=== PATIENT | female | born 1945 | race Caucasian/White ===

== ENCOUNTER 2018-12-12 09:52 | Outpatient (REF) | payer OTHER, SELFPAY ==
[2018-12-12 20:36] LABS: Anion Gap 7.9 mmol/L (3-11); BUN 15 mg/dL (7-18); CO2 29.1 mmol/L (21.0-32.0); CREATININE 0.83 mg/dL (0.55-1.02); Calcium 8.8 mg/dL (8.5-10.1); Chloride 104 mmol/L (98-107); Glucose 105 mg/dL (70-100); Sodium 141 mmol/L (136-145); Troponin I < 0.02 ng/mL (0.00-0.06)
== END 2018-12-12 10:12 ==
LOC: NCHCN 09:52
PROVIDERS: PCP Nurse Practitioner Family; Visit Provider Nurse Practitioner Family
DX: R07.89 Other chest pain (principal)
CPT/HCPCS: 80048; 84484

== ENCOUNTER 2019-03-10 10:37 | Outpatient (REF) | payer OTHER, SELFPAY ==
[2019-03-10 20:32] LABS: TSH 2.49 uIU/mL (0.36-3.74)
== END 2019-03-10 10:57 ==
LOC: NCHCN 10:37
PROVIDERS: PCP Nurse Practitioner Family; Visit Provider Nurse Practitioner Family
DX: E03.9 Hypothyroidism, unspecified (principal)
CPT/HCPCS: 84443

== ENCOUNTER 2019-03-28 01:37 | Outpatient (CLI) | payer OTHER, SELFPAY ==
--- NOTE | 2019-03-28 14:13 | DI.DEXA_ITS ---
SYMPTOMS/DIAGNOSIS: OSTEOPOROSIS, M81.0 DEXA SCAN: DEXA scan was performed according to the usual protocol. The findings for left hip scanning are T score -1.9 with left femoral neck T score -2.2. Findings for lumbar spine scanning are T score -.7. The findings for left forearm scanning are T score -3.2. CONCLUSION: Findings consistent with osteoporosis. Please note that the lateral vertebral scanogram shows no evidence of a vertebral compression fracture.
== END 2019-03-28 01:57 ==
PROVIDERS: PCP Nurse Practitioner Family; Visit Provider Nurse Practitioner Family
DX: M81.0 Age-related osteoporosis without current pathological fracture (principal)
CPT/HCPCS: 77080

== ENCOUNTER 2020-06-26 10:53 | Outpatient (REF) | payer OTHER, SELFPAY ==
[2020-06-26 21:09] LABS: Abs Immature Grans 0.01 10^3/uL (0.0-0.06); Absolute Basophil Count 0.09 10^3/uL (0.0-0.2); Absolute Lymphocyte Count 1.97 10^3/uL (1.2-3.4); Absolute Monocyte Count 0.59 10^3/uL (0.1-0.8); Absolute Neutrophil Count 3.26 10^3/uL (1.2-6.7); Basophils % 1.4; Eosinophils % 4.8; HCT 42.6 % (36.0-46.0); HGB 14.1 g/dL (11.2-15.7); Immature Grans % 0.2; Lymphocytes % 31.7; MCH 31.6 pg (27.0-33.0); MCHC 33.1 % (32.0-36.0); MCV 95.5 fL (80-95); MPV 12.9 fL (8.0-11.0); Monocytes % 9.5; Neutrophils % 52.4; Nucleated RBC 0 %; Platelet Count 204 10^3/uL (130-400); RBC 4.46 10^6/uL (3.93-5.22); RDW 14.1 % (11.7-14.6); RDW-SD 49.8 fL; WBC 6.22 10^3/uL (4.4-10.8)
[2020-06-26 23:25] LABS: ALT 23 U/L (14-59); AST 21 U/L (15-37); Albumin 3.8 g/dL (3.4-5.0); Alkaline Phosphatase 78 U/L (46-116); Anion Gap 10.3 mmol/L (3-11); BUN 21 mg/dL (7-18); Bilirubin, Total 0.6 mg/dL (0.2-1.0); CO2 24.7 mmol/L (21.0-32.0); Calcium 8.8 mg/dL (8.5-10.1); Calculated LDL 104 mg/dL (<100); Chloride 104 mmol/L (98-107); Cholesterol 180 mg/dL (<200); Glucose 99 mg/dL (74-106); HDL Cholesterol 50 mg/dL (40-60); Potassium 4.4 mmol/L (3.5-5.1); Sodium 139 mmol/L (136-145); TSH (W/Ref FT4) 1.96 uIU/mL (0.36-3.74); Total Protein 7.3 g/dL (6.4-8.2); Triglyceride 133 mg/dL (<150)
[2020-06-27 04:45] LABS: Vitamin D 25 Total 28.3 ng/ml (30-100)
== END 2020-06-26 11:13 ==
LOC: NCHCN 10:53
PROVIDERS: PCP Nurse Practitioner Family; Visit Provider Physician Assistant
DX: E78.5 Hyperlipidemia, unspecified (principal); E03.9 Hypothyroidism, unspecified; M81.0 Age-related osteoporosis without current pathological fracture
CPT/HCPCS: 80053; 80061; 82306; 84443; 85025

== ENCOUNTER 2021-04-09 01:30 | Outpatient (CLI) | payer OTHER, SELFPAY ==
--- NOTE | 2021-04-09 | DI.RAD_ITS ---
Exam(s) XR LUMBAR SPINE COMPLETE EXAM: XR LUMBAR SPINE COMPLETE CLINICAL HISTORY: HIP JOINT PAIN RT, M25.551, PAIN IN RT LOWER LEG, M79.661. TECHNIQUE: 2D digital imaging was performed. COMPARISON: No exams were available for comparison FINDINGS: No evidence of acute fracture. There is degenerative anterolisthesis of L4 upon L5, approximately 1 cm, this related to degenerative changes in the facet joints. There is also moderate narrowing of th e L4-5 disc space. There is uniform narrowing of the L1-2 disc space. There is narrowing of the rig ht side of the L2-3 disc space, this resulting in element of scoliosis. There is relative preservati on of disc height at L3-4 level. Advanced disc height loss at L5-S1. Mild multilevel degenerative f acet arthropathy. Sacroiliac joints appear unremarkable. IMPRESSION: Multilevel disc disease and degenerative changes. There is approximately 1 centimeter anterior listh esis of L4 upon L5, this related to facet arthropathy at this level. DATA REPOSITORY: RADIATION DOSE DELIVERED:
--- NOTE | 2021-04-09 | DI.RAD_ITS ---
Exam(s) XR HIP RT COMPLETE AP PELVIS EXAM: XR HIP RT COMPLETE AP PELVIS CLINICAL HISTORY: HIP JOINT PAIN, M25.551, PAIN IN RT LOWER LEG, M79.661. TECHNIQUE: 2D digital imaging was performed. COMPARISON: No exams were available for comparison FINDINGS: No evidence of pelvic nor hip fracture. However, there is asymmetric advanced degenerative osteoarth ritis in the right hip with [id number] apposition in the superior aspect of the right hip joint and subarticular cysts on both sides of this joint. There is no similar narrowing seen in the opposite- left hip. No ominous osseous lesions. Bone density is age-appropriate. IMPRESSION: Advanced degenerative changes in the right hip evident. Sign rib DATA REPOSITORY: RADIATION DOSE DELIVERED:
--- NOTE | 2021-04-09 15:19 | DI.MAMMO_ITS ---
Exam(s) MAMMO SCREENING EXAM: MAMMO SCREENING CLINICAL HISTORY: SCREENING, Z12.31 TECHNIQUE: Bilateral full field digital CC and MLO mammographic images were obtained with 3D tomosyn thesis and utilizing computer aided detection (CAD). COMPARISON: Available for comparison. FINDINGS: Masses/Architectural Distortion: None seen. Microcalcifications: No suspicious pleomorphic-type are seen. Skin Thickening/Nipple Retraction: None. IMPRESSION: 1. No significant interval change with no specific features of malignancy noted. 2. Unless there is more urgent need, screening mammography is recommended, as per [employer] [place] [employer] guidelines. BI-RADS Category 1 - Negative Breast Density - Category B - Scattered areas of fibroglandular density Breast density category C or D implies that the patient has dense breast tissue. Dense breast tissue is very common and is not abnormal but dense breast tissue can make it harder to find cancer on a ma mmogram. Also, dense breast tissue may increase their breast cancer risk. This information about the result of the mammogram report was provided to the patient to raise their awareness. Use this report when you speak with the patient about their risks for breast cancer, which includes their family hist ory. At that time, you may recommend for more screening tests (Ultrasound or MRI) as they might be us eful based on their risk. A negative radiographic report should not delay biopsy if a dominant or clinically suspicious mass is present. Up to ten percent of cancers are not identified on mammography. A negative report may reinforce clinical impression. Adenosis and dense breasts may obscure an underlying neoplasm. False positive reports average 6 to 10%. Patient will receive a letter notifying them of these results.
== END 2021-04-09 01:50 ==
PROVIDERS: PCP Nurse Practitioner Family; Visit Provider Nurse Practitioner Family
DX: Z12.31 Encounter for screening mammogram for malignant neoplasm of breast (principal); M25.551 Pain in right hip; M79.661 Pain in right lower leg
CPT/HCPCS: 77063; 77067; 72110; 73502

== ENCOUNTER → 2021-06-12 08:25 | Outpatient (BNVA) | payer MEDICARE, SELFPAY | PROVIDERS: PCP Nurse Practitioner Family; Referring Provider Nurse Practitioner Family; Visit Provider Student in an Organized Health Care Education/Training Program | DX: M16.11 Unilateral primary osteoarthritis, right hip (principal); Z95.4 Presence of other heart-valve replacement | CPT/HCPCS: 99203 ==

== ENCOUNTER 2021-07-30 13:07 | Outpatient (CLI) | payer MEDICARE, SELFPAY ==
--- NOTE | 2021-07-30 13:00 | DI.RAD_ITS ---
Exam(s) XR PELVIS AP EXAM: XR PELVIS AP CLINICAL HISTORY: pre op R ELEON[facility]A. TECHNIQUE: 2D digital imaging was performed. COMPARISON: Prior x-rays 04/09/2021 FINDINGS: No evidence of pelvic nor hip fracture. Again noted is advanced degenerative narrowing of the superior aspect of the right hip joint with bon e-on-bone narrowing again noted and degenerative subarticular cysts on both sides the joint. Similar findings are not seen in the opposite-left hip. Sacroiliac joints appear unremarkable IMPRESSION: Advanced degenerative narrowing of the right hip joint again noted. DATA REPOSITORY: RADIATION DOSE DELIVERED:
== END 2021-07-30 13:08 | disposition home or self-care (01) ==
LOC: DIORS 13:08
PROVIDERS: PCP Nurse Practitioner Family; Referring Provider Nurse Practitioner Family; Visit Provider Physician Assistant
DX: M16.11 Unilateral primary osteoarthritis, right hip (principal); Z01.818 Encounter for other preprocedural examination
CPT/HCPCS: 72170

== ENCOUNTER 2021-08-11 04:15 | Outpatient (CLI) | payer MEDICARE, SELFPAY ==
[2021-08-11 10:11] LABS: HCT 43.4 % (36.0-46.0); HGB 14.4 g/dL (11.2-15.7); MCH 31.7 pg (27.0-33.0); MCHC 33.2 % (32.0-36.0); MCV 95.6 fL (80-95); MPV 10.8 fL (8.0-11.0); Platelet Count 216 10^3/uL (130-400); RBC 4.54 10^6/uL (3.93-5.22); RDW 13.5 % (11.7-14.6); RDW-SD 48.3 fL
[2021-08-11 10:56] LABS: Anion Gap 10.7 mmol/L (3-11); BUN 16 mg/dL (7-18); CO2 26.3 mmol/L (21.0-32.0); CREATININE 0.8 mg/dL (0.55-1.02); Calcium 9.1 mg/dL (8.5-10.1); Chloride 104 mmol/L (98-107); Glucose 113 mg/dL (74-106); Potassium 4.1 mmol/L (3.5-5.1); Sodium 141 mmol/L (136-145)
[2021-08-12 20:56] LABS: COVID-19 RT-PCR UVMMC Result Negative (Negative)
== END 2021-08-11 04:16 | disposition home or self-care (01) ==
LOC: LBO 04:15
PROVIDERS: PCP Nurse Practitioner Family; Visit Provider Student in an Organized Health Care Education/Training Program
DX: M16.11 Unilateral primary osteoarthritis, right hip (principal); Z01.818 Encounter for other preprocedural examination
CPT/HCPCS: 36415; 80048; 85027; 86850; 86900; 86901; 87635; U0003; U0005

== ENCOUNTER 2021-08-13 06:01 | Day surgery (SDC) | payer MEDICARE, SELFPAY ==
[2021-08-13] VITALS (14 sets, daily range): BP systolic 75–117; BP diastolic 47–91; PULSE 53–82; RESP 14–20; TEMP 36–36.6; O2SAT 96–99; BMI 26.2
--- NOTE | 2021-08-13 06:25 | W.PM.DSUDISC ---
Documented by User: JIAN Peñaloza 08/13/21 06:29 Discharge Plan Disposition Patient Disposition: HOME Condition: Stable Discharge Details Reason For Visit: Right [facility] Attending Provider: Brenardino Kidd Primary Care Provider: Lawanda Vasquez Home Meds and New Rx's Prescriptions: New acetaminophen 500 mg capsule 1,000 mg PO Q8H PRN PRNQty: 90 RF: 0 aspirin 81 mg tablet,delayed release (DR/EC) 81 mg PO BID Qty: 60 RF: 0 celecoxib [Celebrex] 200 mg capsule 200 mg PO BID Qty: 60 RF: 0 pantoprazole [Protonix] 40 mg tablet,delayed release (DR/EC) 40 mg PO DAILY Qty: 30 RF: 0 oxycodone 5 mg tablet 5 mg PO Q4H PRNQty: 18 RF: 0 Continued Fish Oil 340-1,000 mg capsule 1 cap PO DAILY RF: 0 metoprolol succinate 200 mg tablet extended release 24 hr 200 mg PO DAILY RF: 0 levothyroxine 75 mcg tablet 75 mcg PO DAILY RF: 0 simvastatin 10 mg tablet 10 mg PO DAILY RF: 0 cholecalciferol (vitamin D3) 25 mcg (1,000 unit) capsule 25 mcg PO DAILY RF: 0 Discontinued aspirin [Adult Aspirin Regimen] 81 mg tablet,delayed release (DR/EC) 81 mg PO DAILY RF: 0 Discharge Instructions Additional Instructions: Total Hip Discharge Instructions Activity: The most important activity is to walk. You should try to take short walks a few times a day. You have no restrictions on movement or positioning, but do not try to force what you do. You will find some stiffness and weakness with hip flexion (lifting your knee). Do not try to strengthen this too early, continue to practice walking and stairs and this will come. - Outpatient physical therapy can be helpful to help return you to a normal gait and improve your flexibility and strength. This can start around 2 weeks. For some patients, it?s not necessary. Usually this is determined at the time of discharge or at the first post-operative visit. - You should wear the CHET hose on both legs for 2 weeks. Dressing: Keep the surgical dressing in place for at least one week. After the first week it may be removed and replace with light gauze and tape or nothing. It may get wet after 3 days but avoid soaking the dressing. If it gets wet, just lightly pat dry. It is important to always keep some gauze between skin folds, especially when you are sitting. Spend some time with the wound exposed when you are lying flat as the incision does wrinkle onto itself. Medications: - You should take Tylenol and an anti-inflammatory Celebrex as your primary pain control medications. If the Celebrex is too expensive or not covered, please call the office for another alternative (Advil/Ibuprofen or Naproxen/Aleve). - You have been prescribed a stronger pain medication Oxycodone for breakthrough pain, take as needed as prescribed. - You have also been prescribed a stomach acid reduction agent Pantoprozole to help reduce stomach acid and reflux. - You will be taking Aspirin 81mg twice a day for DVT prevention unless instructed otherwise. - If you have constipation you should take Colace or Miralax (both [id number]). It takes most people 3-4 days to have a bowel movement. Follow-up: 2 weeks If you have any acute concerns or questions, please do not hesitate to contact the office at [phone]. You may contact Dr. Kidd with any questions after hours through the hospital at [phone] or on his cell phone at [phone]. 1. Encounter Date and Reason I certify that Gilberto Mccall was seen by Bernardino Kidd MD on 08/13/21 and that I had a [id number] encounter with this patient that meets the physician face to face encounter requirements. 2. Clinical Findings Supporting Skilled Need and Homebound Status I certify that home health services are medically necessary, include either intermittent nursing home and/or physical/speech therapy, and that this patient is homebound in that absences from the home require considerable and taxing effort and are infrequent or of short duration, or are attributable to the need to receive medical care. [X] (a) Attached documentation from encounter provides clinical findings supporting skilled need and homebound status (including what assistance patient requires to leave the home). The encounter with the patient was in whole, or in part, for the following medical condition, which is the primary reason for home health care: Right [facility]: Physical Therapy: Gilberto is s/p anterior hip replacement of the right hip. She has notable weakness and gait dysfunction which would benefit from home health PT. She has no formal restrictions but should use a walker to assist gait until steady and without significant limitation. She has no positioning requirements or restrictions although I recommend to keep knees wider than hips when getting up from a chair or seated position. Speech Therapy: Homebound: Gilberto is homebound. She cannot leave her home unassisted due to gait dysfunction and weakness following recent surgery. 3. Certification and Authentication I certify that I composed the above information based on my clinical judgement relating to this patient's medical condition and, if applicable, clinical findings communicated to me by the NPP or inpatient physician who performed the Home Health Referral. All further orders will be obtained through Dr. Kidd Stand Alone Forms: Anesthesia Discharge Inst., Timbo Casiano (U) Referrals: Bernardino Kidd MD [ [facility] STAFF PHYSICIAN] - Equipment/Supplies: Walker Activity:: Activity as Tolerated Remove Dressings/Wound Care:: Do Not Remove Shower/Bathe:: 72 hours Diet:: As Tolerated Discharge Orders Discharge Orders: Discharge Order (Routine); Ordered 08/13/21 Ordered By: Yeni Baltazar DS: Diagnosis Discharge Diagnosis (1) Primary osteoarthritis of right hip: Status: Chronic Documented by User: Bernardino Kidd MD 08/13/21 14:21 Discharge Plan Disposition Patient Disposition: HOME Condition: Stable Discharge Details Reason For Visit: Right [facility] Attending Provider: Bernardino Kidd Primary Care Provider: Lawanda Vasquez Home Meds and New Rx's Prescriptions: New acetaminophen 500 mg capsule 1,000 mg PO Q8H PRN PRNQty: 90 RF: 0 aspirin 81 mg tablet,delayed release (DR/EC) 81 mg PO BID Qty: 60 RF: 0 celecoxib [Celebrex] 200 mg capsule 200 mg PO BID Qty: 60 RF: 0 pantoprazole [Protonix] 40 mg tablet,delayed release (DR/EC) 40 mg PO DAILY Qty: 30 RF: 0 oxycodone 5 mg tablet 5 mg PO Q4H PRNQty: 18 RF: 0 Continued Fish Oil 340-1,000 mg capsule 1 cap PO DAILY RF: 0 metoprolol succinate 200 mg tablet extended release 24 hr 200 mg PO DAILY RF: 0 levothyroxine 75 mcg tablet 75 mcg PO DAILY RF: 0 simvastatin 10 mg tablet 10 mg PO DAILY RF: 0 cholecalciferol (vitamin D3) 25 mcg (1,000 unit) capsule 25 mcg PO DAILY RF: 0 Discontinued aspirin [Adult Aspirin Regimen] 81 mg tablet,delayed release (DR/EC) 81 mg PO DAILY RF: 0 Discharge Instructions Additional Instructions: Total Hip Discharge Instructions Activity: The most important activity is to walk. You should try to take short walks a few times a day. You have no restrictions on movement or positioning, but do not try to force what you do. You will find some stiffness and weakness with hip flexion (lifting your knee). Do not try to strengthen this too early, continue to practice walking and stairs and this will come. - Outpatient physical therapy can be helpful to help return you to a normal gait and improve your flexibility and strength. This can start around 2 weeks. For some patients, it?s not necessary. Usually this is determined at the time of discharge or at the first post-operative visit. - You should wear the CHET hose on both legs for 2 weeks. Dressing: Keep the surgical dressing in place for at least one week. After the first week it may be removed and replace with light gauze and tape or nothing. It may get wet after 3 days but avoid soaking the dressing. If it gets wet, just lightly pat dry. It is important to always keep some gauze between skin folds, especially when you are sitting. Spend some time with the wound exposed when you are lying flat as the incision does wrinkle onto itself. Medications: - You should take Tylenol and an anti-inflammatory Celebrex as your primary pain control medications. If the Celebrex is too expensive or not covered, please call the office for another alternative (Advil/Ibuprofen or Naproxen/Aleve). - You have been prescribed a stronger pain medication Oxycodone for breakthrough pain, take as needed as prescribed. - You have also been prescribed a stomach acid reduction agent Pantoprozole to help reduce stomach acid and reflux. - You will be taking Aspirin 81mg twice a day for DVT prevention unless instructed otherwise. - If you have constipation you should take Colace or Miralax (both [id number]-[id number]). It takes most people 3-4 days to have a bowel movement. Follow-up: 2 weeks If you have any acute concerns or questions, please do not hesitate to contact the office at [phone]. You may contact Dr. Kidd with any questions after hours through the hospital at [phone] or on his cell phone at [phone]. 1. Encounter Date and Reason I certify that Gilberto Mccall was seen by Bernardino Kidd MD on 08/13/21 and that I had a hidn-jj-wvem encounter with this patient that meets the physician face to face encounter requirements. 2. Clinical Findings Supporting Skilled Need and Homebound Status I certify that home health services are medically necessary, include either intermittent nursing home and/or physical/speech therapy, and that this patient is homebound in that absences from the home require considerable and taxing effort and are infrequent or of short duration, or are attributable to the need to receive medical care. [X] (a) Attached documentation from encounter provides clinical findings supporting skilled need and homebound status (including what assistance patient requires to leave the home). The encounter with the patient was in whole, or in part, for the following medical condition, which is the primary reason for home health care: Right [facility]: Physical Therapy: Gilberto is s/p anterior hip replacement of the right hip. She has notable weakness and gait dysfunction which would benefit from home health PT. She has no formal restrictions but should use a walker to assist gait until steady and without significant limitation. She has no positioning requirements or restrictions although I recommend to keep knees wider than hips when getting up from a chair or seated position. Speech Therapy: Homebound: Gilberto is homebound. She cannot leave her home unassisted due to gait dysfunction and weakness following recent surgery. 3. Certification and Authentication I certify that I composed the above information based on my clinical judgement relating to this patient's medical condition and, if applicable, clinical findings communicated to me by the NPP or inpatient physician who performed the Home Health Referral. All further orders will be obtained through Dr. Kidd Stand Alone Forms: Anesthesia Discharge Inst., Timbo Casiano (U) Referrals: Bernardino Kidd MD [ [facility] STAFF PHYSICIAN] - Equipment/Supplies: Walker Activity:: Activity as Tolerated Remove Dressings/Wound Care:: Do Not Remove Shower/Bathe:: 72 hours Diet:: As Tolerated Discharge Orders Discharge Orders: Discharge Order (Routine); Ordered 08/13/21 Ordered By: Yeni Baltazar
[2021-08-13] MEDS: Celecoxib 200 MG CAP 400 MG PO (06:43)
[2021-08-13] MEDS: Acetaminophen 500 MG TAB 1000 MG PO (06:43)
--- NOTE | 2021-08-13 06:52 | W.ANESPRE ---
General Info Date of Service Date Performed: 08/13/21 Height: 5 ft Weight: 60.8 kg Body Mass Index (BMI): 26.2 Surgical Procedure: Operation Date: 08/13/21 07:50 Proposed Procedures Side Surgeon p Hip Total Hip Anterior Right Bernardino Kidd MD Meds Allergies and Home Medications Allergies Allergy/AdvReac Type Severity Reaction Status Date / Time No Known Allergies Allergy Verified 08/12/21 12:50 Home Medication Medication Instructions Recorded cholecalciferol (vitamin D3) 25 25 mcg PO DAILY 06/10/21 mcg (1,000 unit) capsule levothyroxine 75 mcg tablet 75 mcg PO DAILY 06/10/21 metoprolol succinate 200 mg 200 mg PO DAILY 06/10/21 tablet,extended release 24 hr omega-3 fatty acids-fish oil 340 1 cap PO DAILY 06/10/21 mg-1,000 mg capsule simvastatin 10 mg tablet 10 mg PO DAILY 06/10/21 acetaminophen 1,000 mg PO Q8H PRN PRN #90 cap 08/13/21 aspirin 81 mg PO BID #60 tab 08/13/21 celecoxib [Celebrex] 200 mg PO BID #60 cap 08/13/21 oxycodone 5 mg PO Q4H PRN #18 tab 08/13/21 pantoprazole [Protonix] 40 mg PO DAILY #30 tab 08/13/21 Current Visit Medications: Current Medications Generic Name Dose Route Start Last Admin Trade Name Freq PRN Reason Stop Dose Admin Acetaminophen 1,000 mg 08/13/21 06:00 08/13/21 06:43 Acetaminophen 500 Mg Tab PO 08/13/21 16:00 1,000 mg PREOP REBECA Administration Acetaminophen 1,000 mg 08/13/21 09:00 Acetaminophen 500 Mg Tab PO TID REBECA Aspirin 81 mg 08/13/21 09:00 Aspirin E.C. 81 Mg Tabec PO BID REBECA Celecoxib 400 mg 08/13/21 06:00 08/13/21 06:43 Celecoxib 200 Mg Cap PO 08/13/21 16:00 400 mg PREOP REBECA Administration Celecoxib 200 mg 08/13/21 09:00 Celecoxib 200 Mg Cap PO BID REBECA Docusate Sodium 100 mg 08/13/21 06:24 Docusate Sodium 100 Mg Cap PO BID PRN PRN Constipation Hydromorphone HCl 0.5 mg 08/13/21 06:24 Hydromorphone 2 Mg/Ml Vial IVP Q2H PRN PRN Tranexamic Acid 1,000 mg/ 60 mls @ 360 mls/hr 08/13/21 06:00 Sodium Chloride IV 08/13/21 16:00 PREOP REBECA Ringer's Solution 1,000 mls @ 80 mls/hr 08/13/21 06:00 IV 08/15/21 23:59 INFUSION REBECA Cefazolin Sodium/Dextrose 2 gm in 50 mls @ 100 mls/hr 08/13/21 06:00 Ancef Duplex IVPB 08/13/21 16:00 PREOP REBECA Cefazolin Sodium/Dextrose 1 gm in 50 mls @ 100 mls/hr 08/13/21 16:00 Ancef Duplex IVPB 08/14/21 08:29 Q8H REBECA IV Miscellaneous Supplies 1 each 08/13/21 06:00 Iv Access IV 08/15/21 23:59 DIRECTED REBECA Ondansetron HCl 4 mg 08/13/21 06:24 Ondansetron 4 Mg/2 Ml Vial IVP Q6H PRN PRN Nausea Oxycodone HCl 0 mg 08/13/21 06:24 Oxycodone 5 Mg Tab PO Q3H PRN PRN Pain Pantoprazole Sodium 40 mg 08/13/21 08:00 Pantoprazole 40 Mg Tabcr PO DAILY@0730 REBECA Sodium Chloride 0 ml 08/13/21 06:00 Normal Saline Flush 10 Ml Syr IV 08/15/21 23:59 PRN PRN Sodium Chloride 0 ml 08/13/21 06:00 Normal Saline 10 Ml Vial IJ 08/15/21 23:59 DIRECTED PRN Sterile Water 0 ml 08/13/21 06:00 Water,Injection,Sterile 10 Ml Vial IJ 08/15/21 23:59 DIRECTED PRN PFSH Active Problems Active Problems: Problem Status Onset Code Primary osteoarthritis of right hip M16.11 Osteoporosis M81.0 Hyperlipidemia E78.5 Hypothyroidism E03.9 Vitiligo L80 Medical History Medical History Mitral valve prolapse Mitral valve regurgitation Surgical History Surgical History History of bladder suspension procedure (09/2005) History of wisdom tooth extraction Hx of LASIK Mitral valve replaced (04/2017) Status post partial hysterectomy (07/2005) Tobacco Smoking/Tobacco Use Status: Never Alcohol Alcohol Intake: current Alcohol intake frequency: holidays/special occasions only Substance Use Substance use: Never Substance use type: does not use Vital Signs and Lab Results Vital Signs Most Recent Vital Signs in EMR: Most Recent Vital Signs Temp Pulse Resp BP Pulse Ox 36.6 C 82 18 113/91 H 98 08/13/21 06:18 08/13/21 06:18 08/13/21 06:18 08/13/21 06:18 08/13/21 06:18 Lab Results Blood Type / Crossmatch: Patient ABO/Rh O Positive 08/11/21 09:50 08/11/21 Antibody Screen NEGATIVE 08/11/21 09:50 08/11/21 Complete Blood Count: White Blood Count 8.60 10^3/uL (4.4-10.8) 08/11/21 09:50 08/11/21 Red Blood Count 4.54 10^6/uL (3.93-5.22) 08/11/21 09:50 08/11/21 Hemoglobin 14.4 g/dL (11.2-15.7) 08/11/21 09:50 08/11/21 Hematocrit 43.4 % (36.0-46.0) 08/11/21 09:50 08/11/21 Platelet Count 216 10^3/uL (130-400) 08/11/21 09:50 08/11/21 Complete Metabolic Panel: Sodium Level 141 mmol/L (136-145) 08/11/21 09:50 08/11/21 Potassium Level 4.1 mmol/L (3.5-5.1) 08/11/21 09:50 08/11/21 Chloride Level 104 mmol/L (98-107) 08/11/21 09:50 08/11/21 Carbon Dioxide Level 26.3 mmol/L (21.0-32.0) 08/11/21 09:50 08/11/21 Blood Urea Nitrogen 16 mg/dL (7-18) 08/11/21 09:50 08/11/21 Creatinine 0.8 mg/dL (0.55-1.02) 08/11/21 09:50 08/11/21 Estimated GFR/1.73 m2 >= 60.00 (mL/min/1.73m2) 08/11/21 09:50 08/11/21 Calcium Level 9.1 mg/dL (8.5-10.1) 08/11/21 09:50 08/11/21 Glucose Level 113 mg/dL (74-106) H 08/11/21 09:50 08/11/21 Liver Function Panel: No Data to Display Coagulation Panel: No Data to Display Cardiac Panel: No Data to Display Arterial Blood Gas: No Data to Display Venous Blood Gas: No Data to Display Pancreas Panel: No Data to Display Thyroid Panel: No Data to Display Infectious Disease: Coronavirus (COVID-19)(PCR) Negative (Negative) 08/11/21 10:50 08/11/21 Blood Cultures: No Data to Display Toxicology Panel: No Data to Display Anesthesia Assessment and Plan Anesthesia History Personal History: No History of Anesthesia Complications Family History: No Family History of Anesthesia Complications Exercise Tolerance Exercise Tolerance: Metabolic Equivalents>4 Pertinent Negatives Pertinent Negatives: No Symptoms of GERD, No Major Cardiovascular Symptoms or Complaints, No Major Pulmonary Symptoms or Complaints and No History of CVA/TIA Cardiac & Pulmonary Exam Cardiac Exam: Normal S1/S2 Heart Sounds and Other (Hx of mitral valve replacement) Pulmonary Exam: Clear Bilateral Breath Sounds Implantable Cardiac Device Does patient have a Pacemaker or an ICD?: No Airway Exam Known Difficult Airway: No Mallampati Class: 2 Mouth Opening: Normal (> 3cm) Thyromental Distance: Greater than 3 cm Neck Range of Motion: Full ROM Neck Circumference: Normal Teeth Condition: Normal Dentition ASA Classification ASA Score: ASA 2 Emergency Case?: No NPO Status NPO Status: NPO Clears >2 hours, Solids >8 hours Anesthesia Plan Resuscitation Status: Full Code Anesthesia Technique: Spinal Anesthesia Airway Planned: Natural Airway Monitors Used: Standard Monitors
--- NOTE | 2021-08-13 07:00 | DI.RAD_ITS ---
Exam(s) XR HIP RT IN OR EXAM: XR HIP RT IN OR CLINICAL HISTORY: right total hip. TECHNIQUE: 2D digital imaging was performed. COMPARISON: CR XR PELVIS AP from 07/30/2021 CR XR PELVIS AP from 07/30/2021 FINDINGS: Intraoperative fluoroscopy was provided during right hip arthroplasty. See procedure report for deta ils. Total fluoroscopy time 27 seconds; cumulative dose 2.63mGy IMPRESSION: DATA REPOSITORY: RADIATION DOSE DELIVERED:
[2021-08-13] MEDS: Lactated Ringers 1,000 ML 80 ML IV (07:23)
[2021-08-13] MEDS: ceFAZolin 2 GM/50 ML BAG IVPB (07:40)
[2021-08-13] MEDS: Bupivacaine 0.25% Pres-Free 30 ML VIAL ×2 (08:17→08:21)
[2021-08-13] MEDS: Ketorolac 30 MG/ML VIAL (08:18)
--- NOTE | 2021-08-13 09:44 | ROE_ITS ---
Date of service: 08/13/21 Time of Service: 09:08 Operative Note Operative Note DATE OF PROCEDURE: 08/13/21 PRE-OP DIAGNOSIS: Right Hip Osteoarthritis POST-OP DIAGNOSIS: same PROCEDURE: Right Anterior Total Hip Arthroplasty with Intraoperative Navigation SURGEON: Bernardino Kidd [employer] AGENT: Yeni Baltazar ANESTHESIA TYPE: Spinal Refer to Anesthesia Record ESTIMATED BLOOD LOSS: 100 PATHOLOGY: none sent TOURNIQUET TIME: 0 COMPLICATIONS: None Patient was transported to: PACU Patient's condition: stable Implants: 1. Depuy Surfside Acetabular Component, 48mm 2. Depuy Acetabular Liner, [id number] 3. Depuy Corail Standard Collared Femoral Stem, Size 11 4. Depuy Altrx Ceramic Femoral Head, Size 32+1mm Indications: I have seen Gilberto in clinic for symptoms of hip arthritis, confirmed with radiographic findings. She has exhausted nonoperative methods and was having significant limitations in daily function and desired better function and less pain. I discussed the technical details of a hip replacement. I explained the risks of the procedure to include, but not limited to, bleeding, infection, pain, stiffness, fracture, damage to nerves and vessels, damage to muscles and tendons, loosening, instability, leg length inequality, need for repeat procedure, blood clot and cardiopulmonary demise. Despite these risks, Gilberto elected to proceed. Findings: There was significant signs of arthritis throughout the hip. Procedure Description: Gilberto was greeted in the preoperative holding area where the correct side was identified and marked. The consent was reviewed with the patient and signed. The history and physical was updated. All questions were answered. Gilberto was taken back to the operating room. A spinal anesthestic was then administered. The feet were wrapped with cast padding and Coban and then placed into the boot liners and then into the boots. Care was taken to protect the skin and make sure the heels were fully down and the boots were stable. The patient was then positioned onto the HANA table. Both legs were held in a neutral position. SCDs were applied. The patient was then slid down onto a peroneal post. Prophylactic antibiotics in the form of Cefazolin were administered. 1g of Tranxemic Acid was given intravenously within 30 minutes of incision. The right leg was then prepped with Chloraprep and draped in a standard fashion. A second prep with Chloraprep was performed prior to placement of a shower-curtain type drape with Iodine impregnated skin protection. A timeout to confirm correct identity, side and site, procedure, allergies, anesthesia, and medical concerns was performed. An obliquely oriented incision was made starting lateral to the ASIS and running distal over the Tensor Fascia Estrella (TFL) muscle belly toward the fibular head, approximately 10cm. The skin and soft tissue was dissected sharply, through Bill?s fascia, and to the fascia of the TFL. With the fascia and superior border of the IT band identified, the fascia was incised with a new knife just above any perforators from the IT band. The TFL muscle belly was bluntly dissected away from the fascia and moved laterally. The fat between TFL and rectus was identified to ensure the dissection was not within the TFL. Blunt dissection created space between abductors and the capsule and retractor was placed over the lateral femoral neck. The fibers of the rectus femoris tendon were identified and these were freed from the anterior capsule. A second cobra retractor was placed around the medial femoral neck. The TFL was further retracted laterally to show the deep fascia. Careful dissection through this layer identified three main crossing vessels of the lateral femoral circumflex. These were cauterized in multiple locations and then cut without any noticeable bleeding. The TFL was further released bluntly from the deep fascia to expose anterior hip capsule and fat The David orthopaedic retractor was then placed beneath the TFL and against sartorius and medial soft tissues to protect and retract the soft tissues. A T-capsulotomy was then performed starting at the superior lateral acetabulum and moving distally to the intertrochanteric ridge. These capsular flaps were tagged with a No. 1 Ethibond and elevated from within. The capsular flaps were released to the shoulder of the lateral neck and to the lesser trochanter to give excellent visualization of the proximal femur. A neck osteotomy was performed using an oscillating saw based on preoperative templates. This cut started in the shoulder and of the lateral neck and exited medially. The saw was at all times directed medially to avoid injury to the greater trochanter. Gross traction was applied to the leg and the osteotomy opened. The femoral head was removed with a corkscrew, making sure to protect the TFL on its exit. Traction was released after head removal. This was measured on the back table to determine the starting reamer size. Portions of the rectus obscuring visualization were minimally elevated off the superior acetabulum. An anterior retractor was placed over the anterior wall between capsule and labrum and attached to the Gripper retraction system. The femur was rotated to 90 degrees and medial capsule was fully released until the lesser trochanter was palpable and visible; the femur was returned to 30 degrees. A posterior retractor was placed similarly between capsule and labrum. This provided excellent visualization. The contents of the cotyloid fossa were removed with electrocautery and the labrum was removed with a knife. There was a notable floor osteophyte. There was significant chondromalacia of the superior acetabulum. Acetabular reaming began with a 44mm reamer. This first reaming was directed anterior to posterior and medial to get down to the true floor. This was inspected and reamed until the true floor was reached. The anterior retractor was then released and entry and exit was provided by traction on the capsular flaps. I then reamed sequentially up to a 47mm reamer where good fit was obtained. The larger reamers were oriented based on anatomical reference of the anterior and lateral broussard to ensure proper abduction and anteversion. Positioning and size was confirmed with the fluoroscopy. A 48mm Depuy Surfside acetabular component was selected. The acetabulum was reamed around the periphery with the selected acetabular size to prevent a rim fit. The deep tissues were irrigated. The acetabular component was then impacted in a position of about 40-45 degrees of abduction and 15-20 degrees of anteversion, using the patient?s anatomy as the ultimate landmark. Fluoroscopy was used to confirm this. There was excellent aircraft mechanic structures of the acetabular component and the inserting handle was removed. The acetabular liner, Depuy [id number] polyethylene liner, was inserted and lined up with the tines of the acetabular component. There was no soft tissue interposition. The liner was then impacted into position and confirmed to be well-seated. A portion of the octavio-articular cocktail was then injected around the acetabulum into the capsule and periosteum. This cocktail consisted of 50cc of 0.25% Bupivicaine and 20cc of Exparel and 30mg of Ketorolac. The leg was rotated to 120 degrees. Any remaining medial capsule was released until the lesser trochanter was easily palpable. A retractor was placed medially. The lateral capsule was further released into the shoulder to allow access to the greater trochanter. A Bell retractor was placed over the greater trochanter which allowed the trochanter to flip in front of the capsule for excellent exposure. The leg was brought down into maximal extension and 20 degrees of adduction while ensuring there was no impingement on the acetabulum. Any remnant capsule within the trochanter was released. Piriformis and obturator externis were identified and protected. There was excellent access to the proximal femur. The lateral neck remnant was removed with a rongeur. A blunt canal probe was used to identify the canal and trajectory for later broaching. A box osteotome initiated the broach course. A small curved rasp and a curved curette were used to work laterally. Broaching then began with a size 8 Corail broach. This was inserted manually around the trochanter and into the canal before mallet blows. The broach was seated to a few millimeters below the cut level based on the neck cut and the preoperative template. Sequential broaching was continued with the [employer] pneumatic broaching device until a tight fit was obtained with good rotational control of the femur. A trial standard 135 degree short neck was inserted along with a +1 trial head. The leg was brought out of extension and adduction and then reduced with traction and internal rotation. The leg was stable anteriorly in a position of 30 degrees of extension and 90 degrees of external rotation. Fluoroscopy was used to ensure there was no fracture and the stem was seated well. Leg lengths were checked with an AP pelvis and pelvic reference points. Screenz navigation system was used to confirm appropriate positioning and leg length and offset. There was under correction of the leg length and offset so I went with the 135 degree standard neck. Once content with the desired offset and leg lengths, the leg was brought back into extension, external rotation and adduction. The periosteum and surrounding tissue was injected with remaining portion of the octavio-articular cocktail. The proximal femur was irrigated as well as the deep tissues. The Depuy Corail standard collared stem, size 11, was then manually inserted into the proximal femur making sure to control rotation. It was then malleted into position with light blows, giving breaks to allow bone expansion and decrease risk of fracture. The selected Depuy Altrx Ceramic Head, size 32+1mm, was then placed onto the clean and dry trunnion and secured with impaction onto the tapered fit. The leg was brought back out of extension and adduction and reduced with traction and internal rotation. Stability was confirmed with no shuck at 90 degrees of external rotation and 30 degrees of extension. No impingement through range of motion arc. Final x-ray images were obtained with fluoroscopy to confirm adequate positioning and no intraoperative fracture. The deep tissues were thoroughly irrigated with Irrisept chlorhexadine solution. The capsule was then reapproximated with the previously placed Ethibond sutures. The TFL fascia was finally closed with a No. 2 Stratafix, barbed suture. Deep tissues were then reapproximated with 0 Vicryl and a running 2-0 Vicryl. The skin was closed with a running 4-0 Monocryl in a subcuticular fashion. This was reinforced with skin glue. A Mepilex silver dressing was applied. At the end of the case, all counts were correct. Gilberto was [facility] without difficulty and suffering no apparent complication. Gilberto has a good prognosis. Physical therapy will start today and without restrictions, weight-bearing as tolerated. Aspirin 81mg BID will be used for DVT prophylaxis.
[2021-08-13] MEDS: oxyCODONE 5 MG TAB PO (10:31)
--- NOTE | 2021-08-13 10:34 | W.ANESPOSTOP ---
Postoperative Evaluation Date, Time and Location Date Performed: 08/13/21 Time Performed: 10:34 Patient Location: Day Surgery Unit Vital Signs Most Recent Imported Vital Signs: Most Recent Vital Signs Temp Pulse Resp BP Pulse Ox 36.4 C L 59 L 16 117/62 99 08/13/21 10:17 08/13/21 10:17 08/13/21 10:17 08/13/21 10:17 08/13/21 10:17 Pain Score Most Recent Pain Score: Most Recent Pain Score Pain Level 0 08/13/21 10:17 Assessment Mental Status: Awake (Alert & Oriented to Patient Baseline) Airway and Respiratory Function: Patent airway with normal (patient baseline) respiratory exam Cardiovascular Function: Hemodynamically Stable Hydration Status: Adequately Hydrated Nausea & Vomiting: No Nausea or Vomiting Pain: Pt. Denies Any Pain Peripheral Nerve Block: Patient did not receive a nerve block
--- NOTE | 2021-08-13 11:37 | PT.INIE ---
Date of service: 08/13/21 Time of Service: 11:37 PT Notes Visit Reasons: Right [facility]ON[facility] Physical Therapy Day Surgery Initial Evaluation Date: 08/13/2021 Referring Doctor: JIAN Peñaloza PT Orders: PT CONSULT: Status post Ortho surgery Precautions: WBAT on the right LE with AD. Patient Profile/Admitting Diagnosis: Lisandra is a 76-year-old female with primary unilateral osteoarthritis of the right hip and status post right total hip arthroplasty on postoperative day 0. PMHX: Medical History (Updated 07/30/21 @ 11:05 by Nirmala Henson) Mitral valve prolapse Mitral valve regurgitation Surgical History (Updated 07/30/21 @ 13:19 by Nirmala Henson) History of bladder suspension procedure (09/2005) History of wisdom tooth extraction Hx of LASIK Mitral valve replaced (04/2017) Status post partial hysterectomy (07/2005) Social History/Home Situation: Lives with in a private home 4 steps to enter with bilateral rails. Independent with all aspects of ADLs prior to surgery without assistive device. Equipment Owned/DME: Front wheeled walker Subjective: Agreeable to PT consult. Reported being queasy during mobility assessment. Denies pain in the surgical site throughout. Objective: General Observation: TEDS to bilateral legs. Mepilex Ag over surgical incision. Cold pack on right hip. Mental Status: Appeared somewhat drowsy but able to follow single step commands Pain: Denies ROM: Right Lower Extremity: Hip flexion unable to complete the last 25% of available range. Hip abduction WFL. Knee flexion WFL. Ankle dorsiflexion WFL. Ankle plantarflexion WFL. Left Lower Extremity: Hip flexion WFL. Hip abduction WFL. Knee flexion WFL. Ankle dorsiflexion WFL. Ankle plantarflexion WFL. Strength: Right Lower Extremity: Hip flexors 3-/5. Hip abductors 4 - 4 - /5. Knee flexors 5/5. Knee extensors 5/5. Ankle dorsiflexors 5/5. Ankle plantarflexors 5/5. Left Lower Extremity:Hip flexors 5/5. Hip abductors 5/5. Knee flexors 5/5. Knee extensors 5/5. Ankle dorsiflexors 5/5. Ankle plantarflexors 5/5. Sensation: Reported persistent numbness in bilateral legs and feet Bed Mobility/Transfers: Supine to sit supervision with HOB flat Sit to stand contact-guard assist Stand to sit contact-guard assist Bed to chair contact-guard assist Gait: Instructed patient on level surfaces ambulation for 50 feet utilizing front-wheeled walker with step-to gait pattern requiring contact-guard assist to minimal assist with moderate verbal cues provided to decrease toeing in and hip internal rotation and facilitate a more controlled heel strike on each side. Patient complained of being lightheaded with blood pressure in the high 80s systolically and low 50s diastolically requiring about 6 to 7 minutes of seated rest. Steps appeared uncoordinated and clumsy with right more affected than the left. Nurse paving supervisor Georgina assisting. Stairs: Instructed with stair negotiation techniques on 6 x 4 inch steps and 4 x 6 inch steps while holding onto bilateral rails using step to gait pattern requiring contact-guard assist to minimal assist for safety with moderate verbal for correct placement. Patient again reported being queasy right after activity and needed to be wheeled back to room with BP low 90s systolically and the high 60s diastolically. Nurse paving supervisor Georgina assisting. Balance: Static Sitting: Normal Dynamic Sitting: Normal Static Standing: Fair Dynamic Standing: Poor Special Tests: Mobility Limitations Standardized Measure [facility]-P[facility] 6 clicks Basic Mobility Inpatient Short Form: Raw Score: 18 CMS Score: 47% deficit Informed Consent/Education: Patient instructed in purpose of PT consult. Education and training on initial set of exercises that can be done at home have been completed with patient's . Assessment: Gilberto has a pre-existing unsteady gait pattern affecting the right lower extremity, that along with remaining postoperative numbness, can increase her risk for falls. She will require the use of a front-wheeled walker as well as the assistance of a caregiver for all transfers and ambulation. She will have the support of her as she recovers at home. She will greatly benefit from home health PT in order to increase safety of her walking as well as progressed her mobility level toward independence. Patient presents with clinical signs and symptoms consistent with current/admitting diagnoses that have resulted to mobility limitations, gait instability, generalized weakness, and impairment of motor control as demonstrated by the following impairment level findings: 1. Decreased strength to right hip major muscle groups 2. Impaired standing balance 3. Limitation of joint range of motion in right hip Impairments are contributing to the following functional limitations: 1. Inability to safely ambulate without assistive device 2. Increase completion time for mobility ADL performance 3. Increased fall risk Patient is assessed as a 59917 moderate complexity based on the following: History: 76-year-old female with impairment level findings, functional limitations, and past medical history as indicated above Examination: Demonstrable impairment in strength, balance, and mobility level with underlying impairments and functional limitations as documented above Presentation: Evolving Decision Makin moderate complexity Goals: N/A. PT evaluation and 1-2 treatment sessions only for functional mobility training using recommended AD and for HEP instruction. Plan of Care/Treatment Plan: N/A. PT evaluation and 1-2 treatment session only for functional mobility training using recommended AD and for HEP instruction. VARUN Jaime to see patient this afternoon for more ambulation retraining. DISCHARGE RECOMMENDATIONS: Home with no services [] [X] Home with services. Home when medically cleared by orthopedic surgeon. Patient will benefit from home health PT services in order to progress mobility level using least restrictive assistive ambulatory device, assess home safety, identify additional equipment needs, and continue caregiver education that will maximize functional outcomes. [] Home with outpatient PT [] [] SNF for continued rehabilitation [] [] [facility] [] [] SNF versus LTC based on ability to participate and progress [] TREATMENT CODE/TIME: 41613 x 20 minutes, 29418 x 15 minutes, 88101 x 13 minutes beginning at 11:37 AM. Thank you for the opportunity to participate in the care of this patient. Sharri Morton PT, DPT, CLT [facility] [place], [place]
== END 2021-08-13 14:10 | disposition home or self-care (01) ==
PROVIDERS: PCP Nurse Practitioner Family; Visit Provider Student in an Organized Health Care Education/Training Program
PROC: (CPT 27130; principal; 2021-08-13 07:30)
DX: M16.11 Unilateral primary osteoarthritis, right hip (principal); E03.9 Hypothyroidism, unspecified; E78.5 Hyperlipidemia, unspecified; M81.0 Age-related osteoporosis without current pathological fracture
CPT/HCPCS: 20985; 27130; C1776; 97110; 97162; 97530; 73501; J0690; J1885; J2250; J2405

== ENCOUNTER 2021-08-28 10:29 | Outpatient (CLI) | payer MEDICARE, SELFPAY ==
--- NOTE | 2021-08-28 09:15 | DI.RAD_ITS ---
Exam(s) XR HIP RT COMPLETE AP PELVIS EXAM: XR HIP RT COMPLETE AP PELVIS INDICATION: 1ST POST OP R ELEONORA. COMPARISON: CR XR PELVIS AP from 07/30/2021 XR HIP RT IN OR from 08/13/2021 TECHNIQUE: 2D digital imaging was performed. FINDINGS: There is a right hip prosthesis. The components show satisfactory alignment. There are no abnormal bony lucencies. [id number] degenerative changes are noted in the left hip and SI joints. No n ew abnormalities. DATA REPOSITORY: RADIATION DOSE DELIVERED:
--- OUTSIDE RECORDS SUMMARY | 2021-08-28 10:31 | XMS_ITS ---
:1945 Author Care Team Providers Name Role Phone Provider, Outside Primary Care Provider Unavailable Allergies None recorded. Medications Name Status Start Date Stop Date ? ? alendronate 70 mg tablet Active ? Not dori ilable levothyroxine 75 mcg tablet Active ? Not available lovastatin 20 mg tablet Active ? Not avai lable metoprolol succinate ER 100 mg Active ? N ot available tablet,extended release 24 hr metoprolol succinate ER 200 mg Active ? N ot available tablet,extended release 24 hr metoprolol succinate ER 25 mg Active ? No t available tablet,extended release 24 hr metoprolol tartrate 25 mg tablet Active ? Not available potassium chloride ER 10 mEq Active ? Not available tablet,extended release simvastatin 10 mg tablet Active ? Not dori ilable warfarin 2.5 mg tablet Active ? Not avail able Problems None recorded. Procedures Date Name Performed by ? 12/28/2017 US, Echocardiogram [facility] (Internal) [address] [place] [address] (Work Place) 02/04/2018 US, Echocardiogram [facility] Radiology (Internal) [address] [place] [address] (Work Place) 03/07/2018 US, Echocardiogram [facility] (Internal) [address] [place] [address] (Work Place) Results Lab Results Date Name Specimen Result Interpretation Description Value Range Status Address ? 07/02/2017 Venipuncture BLD ? Venpn* ? ? Final [facility] (Internal) : [address] 07/02/2017 CMP, Serum or S ? g/r 104 74-10 Final [facility] Plasma mg/dL 6 Hospital L ab mg/dL (Internal) : [address] ? ? S High Bun 19 7-17 Final [facility] try mg/dL mg/dL Hospital L ab (Internal) : [address] ? ? S ? Crea 0.70 0.52- Final [facility] mg/dL 1.04 Hospital L ab mg/dL (Internal) : [address] ? ? S ? Ca 10.1 8.4-1 Final [facility] mg/dL 0.2 Hospital L ab mg/dL (Internal) : [address] t ? ? S ? Na 138 137-1 Final [facility] mmol/L 45 Hospital L ab mmol/ (Internal) : L [address] ? ? S ? K 4.2 3.5-5 Final [facility] mmol/L .1 Hospital L ab mmol/ (Internal) : L [address] ? ? S ? Cl 101 98-10 Final [facility] mmol/L 7 Hospital L ab mmol/ (Internal) : L [address] ? ? S ? Tco2 25.0 22.0- Final [facility] mmol/L 30.0 Hospital L ab mmol/ (Internal) : L [address] t ? ? S High Tp 8.4 6.3-8 Final [facility] g/dL .2 Hospital L ab g/dL (Internal) : [address] ? ? S ? Alb 4.5 3.5-5 Final [facility] g/dL .0 Hospital L ab g/dL (Internal) : [address] ? ? S ? Tbil 1.0 0.2-1 Final [facility] mg/dL .3 Hospital L ab mg/dL (Internal) : [address] t ? ? S ? Alp 96 U/L 38-12 Final [facility] try 6 U/L Hospital L ab (Internal) : [address] t ? ? S ? Alt 23 U/L 9-52 Final [facility] (Sgpt) U/L Hospital L ab (Internal) : [address] t ? ? S High Ast 46 U/L 14-36 Final [facility] (Sgot) U/L Hospital L ab (Internal) : [address] t 07/02/2017 BNP (B-type S High Nt-probn 975 0-125 Final [facility] Natriuretic p pg/mL pg/mL Hospi carrol Lab Peptide), (Transportation Dispatch Manager al): Prohormone [address]itan, Anthony Ramirez Quant, Immunoassay, Blood 06/08/2017 Venipuncture BLD ? Venpn* ? ? Final [facility] (Internal) : [address] t 06/08/2017 CMP, Serum or S High g/r 120 74-10 Final [facility] Plasma mg/dL 6 Hospital L ab mg/dL (Internal) : [address] t ? ? S ? Bun 12 7-17 Final [facility] try mg/dL mg/dL Hospital L ab (Internal) : [address] ? ? S ? Crea 0.80 0.52- Final [facility] try mg/dL 1.04 Hospital L ab mg/dL (Internal) : [address] t ? ? S ? Ca 9.2 8.4-1 Final [facility] try mg/dL 0.2 Hospital L ab mg/dL (Internal) : [address] t ? ? S ? Na 137 137-1 Final [facility] try mmol/L 45 Hospital L ab mmol/ (Internal) : L [address] ? ? S ? K 4.3 3.5-5 Final [facility] try mmol/L .1 Hospital L ab mmol/ (Internal) : L [address] t ? ? S ? Cl 103 98-10 Final [facility] try mmol/L 7 Hospital L ab mmol/ (Internal) : L [address] t ? ? S ? Tco2 25.0 22.0- Final [facility] try mmol/L 30.0 Hospital L ab mmol/ (Internal) : L [address] t ? ? S ? Tp 8.1 6.3-8 Final [facility] try g/dL .2 Hospital L ab g/dL (Internal) : [address] t ? ? S ? Alb 4.2 3.5-5 Final [facility] try g/dL .0 Hospital L ab g/dL (Internal) : [address] ? ? S ? Tbil 0.6 0.2-1 Final [facility] mg/dL .3 Hospital L ab mg/dL (Internal) : [address] ? ? S ? Alp 105 38-12 Final [facility] try U/L 6 U/L Hospital L ab (Internal) : [address] ? ? S ? Alt 21 U/L 9-52 Final [facility] try (Sgpt) U/L Hospital L ab (Internal) : [address] ? ? S ? Ast 31 U/L 14-36 Final [facility] try (Sgot) U/L Hospital L ab (Internal) : [address] 06/08/2017 CBC W/ Auto BLD ? Wbc 8.8 5.0-1 Final [facility] Diff 10*3/u 0.0 Hospital L ab L 10*3/ (Internal) : uL [address] ? ? BLD Low Rbc 3.95 4.10- Final [facility] 10*6/u 5.30 Hospital L ab L 10*6/ (Internal) : uL [address] ? ? BLD Low Hgb 11.9 12.0- Final [facility] try g/dL 16.0 Hospital L ab g/dL (Internal) : [address] ? ? BLD ? Hct 37.5 % 37.0- Final [facility] try 47.0 Hospital L ab % (Internal) : [address] ? ? BLD ? Mcv 94.9 80.0- Final [facility] [place] [facility] try fL 96.0 Hospital L ab fL (Internal) : [address] ? ? BLD ? Mch 30.1 26.0- Final [facility] try pg 32.0 Hospital L ab pg (Internal) : [address] ? ? BLD ? Mchc 31.7 31.0- Final [facility] try g/dL 35.0 Hospital L ab g/dL (Internal) : [address] ? ? BLD ? Rdw 14.5 % 11.5- Final [facility] try 14.5 Hospital L ab % (Internal) : [address] ? ? BLD ? Plt 197 130-4 Final [facility] try 10*3/u 50 Hospital L ab L 10*3/ (Internal) : uL [address] [place] ? ? BLD ? Anc 6.08 ? Final [facility] [place] [facility] try 10*3/u Hospital L ab L (Internal) : [address] [place] ? ? BLD ? Neutro 69.2 % 40.0- Final [place] [facility]try 75.0 Hospital L ab % (Internal) : [address] [place] ? ? BLD Low Lymph 17.0 % 20.0- Final [facility] try 50.0 Hospital L ab % (Internal) : [address] [place] ? ? BLD High [place] 11.6 % 2.0-1 Final [facility] try 0.0 % Hospital L ab (Internal) : [address] [place] ? ? BLD Low Eos 0.9 % 1.0-6 Final [facility] try .0 % Hospital L ab (Internal) : [address] [place] ? ? BLD High Baso 1.1 % 0.0-1 Final [facility] try .0 % Hospital L ab (Internal) : [address] [place] ? ? BLD ? Ig 0.2 % 0.0-0 Final [facility] try .9 % Hospital L ab (Internal) : [address] [place] Past Encounters None recorded. Social History None recorded. Vaccine List None recorded. Plan of Care Reminders Provider Appointments None ? ? recorded. Lab None ? ? recorded. Referral None ? ? recorded. Procedures None ? ? recorded. Surgeries None ? ? recorded. Imaging None ? ? recorded. Vitals None recorded.
== END 2021-08-28 10:30 | disposition home or self-care (01) ==
LOC: DIORS 10:29
PROVIDERS: PCP Nurse Practitioner Family; Referring Provider Nurse Practitioner Family
DX: Z47.1 Aftercare following joint replacement surgery (principal); Z96.641 Presence of right artificial hip joint
CPT/HCPCS: 73502

== ENCOUNTER → 2021-09-25 09:00 | Outpatient (BNVA) | payer MEDICARE, SELFPAY | PROVIDERS: PCP Nurse Practitioner Family; Referring Provider Nurse Practitioner Family; Visit Provider Student in an Organized Health Care Education/Training Program | DX: Z47.1 Aftercare following joint replacement surgery (principal); Z96.641 Presence of right artificial hip joint ==

== ENCOUNTER 2022-01-15 15:14 | Outpatient (REF) | payer MEDICARE, SELFPAY ==
[2022-01-15 19:26] LABS: ALT 22 U/L (14-59); AST 18 U/L (15-37); Albumin 3.6 g/dL (3.4-5.0); Alkaline Phosphatase 92 U/L (46-116); Anion Gap 6.4 mmol/L (3-11); BUN 18 mg/dL (7-18); Bilirubin, Total 0.6 mg/dL (0.2-1.0); CO2 27.6 mmol/L (21.0-32.0); CREATININE 0.8 mg/dL (0.55-1.02); Calcium 8.7 mg/dL (8.5-10.1); Calculated LDL 140 mg/dL (<100); Chloride 102 mmol/L (98-107); Cholesterol 214 mg/dL (<200); Glucose 106 mg/dL (74-106); HDL Cholesterol 52 mg/dL (40-60); Potassium 3.9 mmol/L (3.5-5.1); Sodium 136 mmol/L (136-145); TSH (W/Ref FT4) 1.67 uIU/mL (0.36-3.74); Total Protein 7.2 g/dL (6.4-8.2); Triglyceride 114 mg/dL (<150)
== END 2022-01-15 15:15 | disposition home or self-care (01) ==
LOC: NCHCN 15:14
PROVIDERS: PCP Nurse Practitioner Family; Visit Provider Nurse Practitioner Family
DX: E03.9 Hypothyroidism, unspecified (principal); E78.5 Hyperlipidemia, unspecified; I47.1 Supraventricular tachycardia
CPT/HCPCS: 80053; 80061; 84443

== ENCOUNTER 2022-07-15 15:20 | Outpatient (REF) | payer MEDICARE, SELFPAY ==
[2022-07-15 20:48] LABS: Anion Gap 3.2 mmol/L (3-11); BUN 19 mg/dL (7-18); CO2 29.8 mmol/L (21.0-32.0); CREATININE 0.8 mg/dL (0.55-1.02); Calcium 8.9 mg/dL (8.5-10.1); Calculated LDL 105 mg/dL (<100); Chloride 104 mmol/L (98-107); Cholesterol 182 mg/dL (<200); Estimated GFR 76.79 (mL/min/1.73m2); Glucose 101 mg/dL (74-106); HDL Cholesterol 49 mg/dL (40-60); Potassium 4.3 mmol/L (3.5-5.1); Sodium 137 mmol/L (136-145); Triglyceride 143 mg/dL (<150)
== END 2022-07-15 15:21 | disposition home or self-care (01) ==
LOC: NCHCN 15:20
PROVIDERS: PCP Nurse Practitioner Family; Visit Provider Nurse Practitioner Family
DX: E78.5 Hyperlipidemia, unspecified (principal); I34.0 Nonrheumatic mitral (valve) insufficiency
CPT/HCPCS: 80048; 80061

== ENCOUNTER 2022-08-20 11:00 | Outpatient (CLI) | payer MEDICARE, SELFPAY ==
--- NOTE | 2022-08-20 10:15 | DI.RAD_ITS ---
Exam(s) XR HIP RT AP LAT ONLY EXAM: XR HIP RT AP LAT ONLY CLINICAL HISTORY: ANNUAL F/U R ELEONORA. TECHNIQUE: 2D digital imaging was performed. COMPARISON: CR XR HIP RT COMPLETE AP PELVIS from 08/28/2021 FINDINGS: Two views: There is stable position alignment of the components of the hip prosthesis. No fracture or loosening . IMPRESSION: DATA REPOSITORY: RADIATION DOSE DELIVERED:
== END 2022-08-20 11:01 | disposition home or self-care (01) ==
LOC: DIORS 11:01
PROVIDERS: PCP Nurse Practitioner Family; Referring Provider Nurse Practitioner Family; Visit Provider Student in an Organized Health Care Education/Training Program
DX: Z96.641 Presence of right artificial hip joint (principal)
CPT/HCPCS: 99213; 73502

== ENCOUNTER 2022-12-23 10:51 | Outpatient (REF) | payer MEDICARE, SELFPAY ==
[2022-12-23 20:16] LABS: Anion Gap 2.8 mmol/L (3-11); BUN 17 mg/dL (7-18); CO2 30.2 mmol/L (21.0-32.0); CREATININE 0.8 mg/dL (0.55-1.02); Calcium 8.9 mg/dL (8.5-10.1); Chloride 105 mmol/L (98-107); Estimated GFR 76.79 (mL/min/1.73m2); Glucose 107 mg/dL (74-106); Potassium 4.8 mmol/L (3.5-5.1); Sodium 138 mmol/L (136-145)
[2022-12-23 20:22] LABS: Hemoglobin A1C 5.5 % (<5.7)
== END 2022-12-23 10:52 | disposition home or self-care (01) ==
LOC: NCHCN 10:51
PROVIDERS: PCP Nurse Practitioner Family; Visit Provider Nurse Practitioner Family
DX: R73.03 Prediabetes (principal); E03.9 Hypothyroidism, unspecified
CPT/HCPCS: 80048; 83036; 84443

== ENCOUNTER 2022-12-24 01:41 | Outpatient (CLI) | payer MEDICARE, SELFPAY ==
--- NOTE | 2022-12-24 11:00 | DI.MAMMO_ITS ---
Exam(s) MAMMO SCREENING EXAM: MAMMO SCREENING CLINICAL HISTORY: SCREENING, Z12.31. TECHNIQUE: Bilateral full field digital CC and MLO mammographic images were obtained with 3D tomosyn thesis and utilizing computer aided detection (CAD). COMPARISON: Prior mammograms were reviewed. FINDINGS: There has been no significant change in the appearance and distribution of the fibroglandular tissue. There are no new spiculated masses nor malignant appearing microcalcification groups. There is no significant architectural distortion nor skin thickening-retraction. IMPRESSION: No radiographic evidence of malignancy. BI-RADS Category 1 - Negative Breast Density - Category B - Scattered areas of fibroglandular density Breast density Category C or D implies that the patient has dense breast tissue. Dense breast tissue can make it harder to find cancer on a mammogram. Dense breast tissue is also associated with an incr eased risk of breast cancer. This information about the result of the mammogram report was provided to the patient to raise their awareness. Use this report when you speak with the patient about their risks for breast cancer, which includes their family history. At that time, you may recommend additional screening tests (Ultrasoun d or MRI) as these tests may add significant information. A negative radiographic report should not delay biopsy if a dominant or clinically suspicious mass is present. Up to ten percent of cancers are not identified on mammography. A negative report may reinforce clinical impression. Adenosis and dense breasts may obscure an underlying neoplasm. False positive reports average 6 to 10%. Patient will receive a letter notifying them of these results.
== END 2022-12-24 02:01 ==
LOC: DI 01:41
PROVIDERS: PCP Nurse Practitioner Family; Visit Provider Nurse Practitioner Family
DX: Z12.31 Encounter for screening mammogram for malignant neoplasm of breast (principal)
CPT/HCPCS: 77063; 77067

== ENCOUNTER 2023-05-18 15:04 | Outpatient (REF) | payer MEDICARE, SELFPAY ==
[2023-05-18 20:12] LABS: Troponin I < 50 ng/L (<or=60)
== END 2023-05-18 15:05 | disposition home or self-care (01) ==
LOC: NCHCN 15:04
PROVIDERS: PCP Nurse Practitioner Family; Visit Provider Nurse Practitioner Family
DX: R07.89 Other chest pain (principal)
CPT/HCPCS: 84484

== ENCOUNTER 2024-08-02 21:52 | Outpatient (REF) | payer MEDICARE, SELFPAY ==
[2024-08-02 21:53] LABS: ALT 21 U/L (14-59); AST 28 U/L (15-37); Albumin 3.7 g/dL (3.4-5.0); Alkaline Phosphatase 82 U/L (46-116); Anion Gap 5.6 mmol/L (3-11); BUN 17 mg/dL (7-18); Bilirubin, Total 0.78 mg/dL (0.2-1.0); CO2 29.4 mmol/L (21.0-32.0); CREATININE 0.9 mg/dL (0.55-1.02); Calcium 9.5 mg/dL (8.5-10.1); Calculated LDL 102 mg/dL (<100); Chloride 105 mmol/L (98-107); Cholesterol 183 mg/dL (<200); Estimated GFR 65.84 (mL/min/1.73m2); Glucose 106 mg/dL (74-106); HDL Cholesterol 59 mg/dL (40-60); Potassium 4.9 mmol/L (3.5-5.1); Sodium 140 mmol/L (136-145); TSH 2.04 uIU/mL (0.36-3.74); Total Protein 7.9 g/dL (6.4-8.2); Triglyceride 114 mg/dL (<150)
== END 2024-08-02 21:53 | disposition home or self-care (01) ==
LOC: NCHCN 21:52
PROVIDERS: PCP Nurse Practitioner Family; Visit Provider Nurse Practitioner Family
DX: E78.5 Hyperlipidemia, unspecified (principal)
CPT/HCPCS: 80053; 80061; 84443

== ENCOUNTER 2025-03-07 01:58 | Outpatient (CLI) | payer MEDICARE, SELFPAY ==
--- NOTE | 2025-03-07 10:12 | DI.MAMMO_ITS ---
Exam(s) MAMMO SCREENING EXAM: MAMMO SCREENING CLINICAL HISTORY: SCREENING Z12.31 TECHNIQUE: Bilateral full field digital CC and MLO mammographic images were obtained with 3D tomosynthesis and utilizing computer aided detection (CAD). COMPARISON: Comparison is made with prior examinations. FINDINGS: Masses/Architectural Distortion: No suspicious masses or areas of architectural distortion are present. Microcalcifications: No suspicious pleomorphic-type are seen. Skin Thickening/Nipple Retraction: None. IMPRESSION: 1. No significant interval change with no specific features of malignancy noted. 2. Unless there is more urgent need, screening mammography is recommended, as per [place] [employer] guidelines. BI-RADS Category 1 - Negative Breast Density - Category B - There are scattered areas of fibroglandular density. Breast density Category C or D implies that the patient has dense breast tissue. Dense breast tissue can make it harder to find cancer on a mammogram. Dense breast tissue is also associated with an increased risk of breast cancer. This information about the result of the mammogram report was provided to the patient to raise their awareness. Use this report when you speak with the patient about their risks for breast cancer, which includes their family history. At that time, you may recommend additional screening tests (Ultrasound or MRI) as these tests may add significant information. A negative radiographic report should not delay biopsy if a dominant or clinically suspicious mass is present. Up to ten percent of cancers are not identified on mammography. A negative report may reinforce clinical impression. Adenosis and dense breasts may obscure an underlying neoplasm. False positive reports average 6 to 10%. Patient will receive a letter notifying them of these results.
== END 2025-03-07 02:18 ==
PROVIDERS: PCP Nurse Practitioner Family; Visit Provider Nurse Practitioner Family
DX: Z12.31 Encounter for screening mammogram for malignant neoplasm of breast (principal); R92.323 Mammographic fibroglandular density, bilateral breasts
CPT/HCPCS: 77063; 77067

== ENCOUNTER 2025-08-14 10:22 | Outpatient (REF) | payer MEDICARE, SELFPAY ==
[2025-08-14 19:27] LABS: HCT 42.1 % (36.0-46.0); HGB 14.0 g/dL (11.2-15.7); MCH 31.7 pg (27.0-33.0); MCHC 33.3 % (32.0-36.0); MCV 95 fL (80-95); MPV 12.2 fL (8.0-11.0); Platelet Count 186 10^3/uL (130-400); RBC 4.42 10^6/uL (3.93-5.22); RDW 13.9 % (11.7-14.6); RDW-SD 48.9 fL; WBC 6.57 10^3/uL (4.4-10.8)
[2025-08-14 19:44] LABS: ALT 20 U/L (10-49); AST 28 U/L (<34); Albumin 4.2 g/dL (3.2-5.0); Alkaline Phosphatase 72 U/L (46-116); Anion Gap 7.9 mmol/L (3-11); BUN 23 mg/dL (9-23); Bilirubin, Total 0.8 mg/dL (0.2-1.2); CO2 25.1 mmol/L (20.0-31.0); Calcium 8.9 mg/dL (8.3-10.6); Chloride 109 mmol/L (98-107); Cholesterol 175 mg/dL (<200); Glucose 109 mg/dL (74-106); HDL Cholesterol 53 mg/dL (>or=50); Potassium 4.2 mmol/L (3.5-5.1); Sodium 142 mmol/L (136-145); Total Protein 7.5 g/dL (5.7-8.2)
[2025-08-14 19:46] LABS: TSH (W/Ref FT4) 2.34 uIU/mL (0.55-4.78)
== END 2025-08-14 10:23 | disposition home or self-care (01) ==
LOC: NCHCN 10:22
PROVIDERS: PCP Nurse Practitioner Family; Visit Provider Nurse Practitioner Family
DX: I25.10 Atherosclerotic heart disease of native coronary artery without angina pectoris (principal); E78.5 Hyperlipidemia, unspecified; E03.9 Hypothyroidism, unspecified
CPT/HCPCS: 80053; 80061; 85027; 84443